=== PATIENT | male | born 1985 | race Caucasian/White ===

== ENCOUNTER 2024-10-27 12:32 | Emergency (ER) | payer BC, OTHER ==
[~2024-10-27] VITALS: Ht 182.9 cm; Wt 94.0 kg
[2024-10-27] MEDS: LIDOcaine 1% W/epiNEPHrine 1:100,000 20ml vial SQ ONE (14:56)
[2024-10-27] MEDS ORDERED: AMOX-117 PO (15:31)
[2024-10-27] MEDS: amox tr/potassium clavulanate 875/125mg TAB PO ONE (15:36)
[2024-10-27 16:01] VITALS: BP 137/90; PULSE 65; RESP 16; TEMP 98.3; O2SAT 99
== END 2024-10-27 16:02 | disposition home or self-care (01) ==
LOC: ER 12:33
DX: S01.21XA Laceration without foreign body of nose, initial encounter (principal); W54.0XXA Bitten by dog, initial encounter; Y93.89 Activity, other specified; Y92.89 Other specified places as the place of occurrence of the external cause; Y99.8 Other external cause status
CPT/HCPCS: 12011; 70486; 99284; J7030; A6449